=== PATIENT | male | born 1985 | race Caucasian/White ===

== ENCOUNTER 2020-04-23 14:27 | Emergency (ER) | payer MEDICAID ==
[~2020-04-23] VITALS: Ht 165.1 cm; Wt 81.6 kg
[~2020-04-23 14:27] MED LIST: ACETAMINOPHEN325 M1 ORAL; ADVIL200 M2 ORAL
--- NOTE | 2020-04-23 15:30 | Emergency Room Report ---
History of Present Illness General Chief Complaint: Abdominal Pain Source: Patient Present Illness HPI Disclaimer: Please note that this report is being documented using [employer] technology. This can lead to erroneous entry secondary to incorrect interpretation by the dictating instrument. HPI: 35-year-old male history of recent COVID-19 presents with epigastric pain. He states it is been present for the past 1 hour. Denies any nausea, vomiting, urinary complaints. Denies any fever. Pain has subsided at this time. Denies any worsening with eating. No urinary complaints. Patient recently had admitted to the hospital for COVID-19 but feels improved denies shortness of breath or coughing. 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 COVID-19 Screening: Positive COVID-19 COVID-19 Testing [place] [facility] [place] Reviewed Nursing Documentation: PMH: Agreed; PSxH: Agreed Nursing Documentation-PMH Past Medical History: No History, Except For Review of Systems All Other Systems: negative except mentioned in HPI Physical Exam Vital Signs Date Time Temp Pulse Resp B/P (MAP) Pulse Ox O2 Delivery O2 Flow Rate FiO2 04/23/20 14:39 98.2 80 20 109/75 (86) 95 Room Air Sp02 EP Interpretation: reviewed, normal General Appearance: well appearing, no apparent distress Head: normocephalic, atraumatic Eyes: bilateral eye PERRL, bilateral eye EOMI ENT: hearing grossly normal, moist mucus membranes Neck: full range of motion, supple Respiratory: lungs clear, normal breath sounds, no rhonchi, no respiratory distress, no retraction, no wheezing Cardiovascular #1: normal peripheral pulses, regular rate, rhythm, no murmur Gastrointestinal: non tender, soft, non-distended, no guarding Neurologic: alert, oriented x3, no focal defects Skin: normal color, warm/dry Medical Decision Making Diagnostic Impression: Primary Impression: UTI (urinary tract infection) Additional Impression: Abdominal pain ER Course MDM: Differential included but not limited to gastritis, pancreatitis, cholecystitis to name a few. Clinical course-patient placed on a gurney. Vital signs stable. Exam benign. Laboratory studies showed mild 1+ leukocyte Estrace in the urine. Due to his abdominal pain recent admission weight will place on p.o. Cipro. Labs - Laboratory Tests Test 04/23/20 15:30 White Blood Count 7.3 K/UL (4.8-10.8) Red Blood Count 5.71 M/UL (4.70-6.10) Hemoglobin 16.0 G/DL (14.2-18.0) Hematocrit 48.8 % (42.0-52.0) Mean Corpuscular Volume 86 FL (80-99) Mean Corpuscular Hemoglobin 28.0 PG (27.0-31.0) Mean Corpuscular Hemoglobin Concent 32.7 G/DL (32.0-36.0) Red Cell Distribution Width 11.5 % (11.6-14.8) L Platelet Count 276 K/UL (150-450) Mean Platelet Volume 8.7 FL (6.5-10.1) Neutrophils (%) (Auto) 50.8 % (45.0-75.0) Lymphocytes (%) (Auto) 33.0 % (20.0-45.0) Monocytes (%) (Auto) 10.5 % (1.0-10.0) H Eosinophils (%) (Auto) 3.7 % (0.0-3.0) H Basophils (%) (Auto) 2.0 % (0.0-2.0) Urine Color Pale yellow Urine Appearance Clear Urine pH 5 (4.5-8.0) Urine Specific [place] 1.020 (1.005-1.035) Urine Protein Negative (NEGATIVE) Urine Glucose (UA) Negative (NEGATIVE) Urine Ketones Negative (NEGATIVE) Urine Blood Negative (NEGATIVE) Urine Nitrite Negative (NEGATIVE) Urine Bilirubin Negative (NEGATIVE) Urine Urobilinogen Normal MG/DL (0.0-1.0) Urine Leukocyte Esterase 1+ (NEGATIVE) H Urine RBC 0 /HPF (0 - 0) Urine WBC 0-2 /HPF (0 - 0) Urine Squamous Epithelial Cells None /LPF (NONE/OCC) Urine Bacteria Few /HPF (NONE) Urine Sperm Occasional /LPF (NONE) Sodium Level 139 MMOL/L (136-145) Potassium Level 4.8 MMOL/L (3.5-5.1) Chloride Level 104 MMOL/L (98-107) Carbon Dioxide Level 27 MMOL/L (21-32) Anion Gap 8 mmol/L (5-15) Blood Urea Nitrogen 16 mg/dL (7-18) Creatinine 0.8 MG/DL (0.55-1.30) Estimated Glomerular Filtration Rate > 60 mL/min (>60) Glucose Level 103 MG/DL (74-106) Calcium Level 8.7 MG/DL (8.5-10.1) Total Bilirubin 0.2 MG/DL (0.2-1.0) Aspartate Amino Transferase (AST) 50 U/L (15-37) H Alanine Aminotransferase (ALT) 286 U/L (12-78) H Alkaline Phosphatase 107 U/L (46-116) Total Protein 7.3 G/DL (6.4-8.2) Albumin 3.4 G/DL (3.4-5.0) Globulin 3.9 g/dL Albumin/Globulin Ratio 0.9 (1.0-2.7) L Lipase 208 U/L (73-393) On reevaluation: Patient remained in no acute distress Plan-discharge home p.o. Cipro follow-up PMD return precautions given Last Vital Signs Date Time Temp Pulse Resp B/P (MAP) Pulse Ox O2 Delivery O2 Flow Rate FiO2 04/23/20 14:39 98.2 80 20 109/75 (86) 95 Room Air Disposition: HOME, SELF-CARE Condition: Stable Scripts Ciprofloxacin Hcl* (CIPROFLOXACIN HCL*) 500 Mg Tablet 500 MG ORAL Q12H, #14 TAB 0 Refills Prov: Ok Chinchilla M.D. 04/23/20 Referrals: NOT CHOSEN IPA/,REFERRING (PCP) Ok Chinchilla M.D. Apr 23, 2020 15:29
[2020-04-23 15:58] VITALS: BP 109/75
[2020-04-23 16:07] LABS: APPEARANCE,URINE CLEAR; BILIRUBIN, URINE NEGATIVE (NEGATIVE); COLOR,URINE PALE YELLOW; GLUCOSE, URINE (UA) NEGATIVE (NEGATIVE); KETONES,URINE NEGATIVE (NEGATIVE); LEUKOCYTE ESTERASE ,URINE 1+ (NEGATIVE); NITRITE,URINE NEGATIVE (NEGATIVE); PH,URINE 5 (4.5-8.0); PROTEIN,URINE NEGATIVE (NEGATIVE); UROBILINOGEN,URINE NORMAL MG/DL (0.0-1.0)
[2020-04-23 16:08] LABS: EOSINOPHILS % (AUTO) 3.7 % (0.0-3.0); HEMATOCRIT 48.8 % (42.0-52.0); MEAN CORPUSCULAR VOLUME 86 FL (80-99); MONOCYTES % (AUTO) 10.5 % (1.0-10.0); NEUTROPHILS % (AUTO) 50.8 % (45.0-75.0); PLATELET COUNT 276 K/UL (150-450); RED BLOOD COUNT 5.71 M/UL (4.70-6.10); RED CELL DISTRIBUTION WIDTH 11.5 % (11.6-14.8); WHITE BLOOD COUNT 7.3 K/UL (4.8-10.8)
[2020-04-23 16:23] LABS: ANION GAP 8 mmol/L (5-15); BLOOD UREA NITROGEN 16 mg/dL (7-18); CALCIUM 8.7 MG/DL (8.5-10.1); CARBON DIOXIDE 27 MMOL/L (21-32); CHLORIDE 104 MMOL/L (98-107); CREATININE 0.8 MG/DL (0.55-1.30); POTASSIUM 4.8 MMOL/L (3.5-5.1); SODIUM 139 MMOL/L (136-145)
[2020-04-23 16:27] LABS: ALANINE AMINOTRANSFERASE 286 U/L (12-78); ALBUMIN 3.4 G/DL (3.4-5.0); ALBUMIN/GLOBULIN RATIO 0.9 (1.0-2.7); ALKALINE PHOSPHATASE 107 U/L (46-116); ASPARTATE AMINO TRANSFERASE 50 U/L (15-37); BILIRUBIN,TOTAL 0.2 MG/DL (0.2-1.0)
[2020-04-23] MEDS ORDERED: CIPROFLOXACIN500 M2 ORAL (16:36)
[2020-04-23 16:45] VITALS: BP 110/75
[2020-04-23 16:50] VITALS: BP 109/75
--- NOTE | 2020-04-23 17:54 | Diagnostic Imaging Report ---
Indication: Abdominal pain Technique: Grayscale and duplex images of the right upper quadrant. Exam limited due to patient being Covid positive Comparison: none Findings: Pancreas is incompletely visualized, visualized portions unremarkable. Nonaneurysmal abdominal aorta. The liver demonstrates slightly increased echogenicity, consistent with hepatocellular disease, likely fatty change. There is some focal sparing in the usual location adjacent to the gallbladder fossa. The right kidney measures 11.7 cm in length. The gallbladder is unremarkable, without stones, wall thickening, nor pericholecystic fluid. Common bile duct measures 5 mm diameter. Scanning in the area of pain below the umbilicus does not demonstrate any sonographically discernible abnormality Impression: Limited exam, as described Negative for gallstones or dilated bile ducts Liver demonstrates diffusely increased echogenicity, consistent with diffuse hepatocellular disease, most likely fatty change. Note focal sparing in the usual location adjacent to the gallbladder fossa
== END 2020-04-23 16:58 | disposition home or self-care (01) ==
LOC: EMR 15:00
DX: N39.0 Urinary tract infection, site not specified (principal); R10.13 Epigastric pain
CPT/HCPCS: 36415; 76705; 80053; 81003; 83690; 85025; Z7502; 99284

== ENCOUNTER 2020-08-16 01:27 | Emergency (ER) | payer MEDICAID ==
[~2020-08-16] VITALS: Ht 175.3 cm; Wt 93.0 kg
[~2020-08-16 01:27] MED LIST changes: +CIPROFLOXACIN500 M2 ORAL
[2020-08-16] MEDS ORDERED: Aspirin Baby 81mg ORAL ONE (01:45)
--- NOTE | 2020-08-16 01:45 | NUR ---
ED Nurse Note: Recieved pt walk in from home with c/o headache with upper back of neck and shoulder pain at 8, pt describes as muscle tightness, pt states he has been very stressed lately, denies chest pain, sob, or any otehr complaints, states he really just wants to sleep, MD at bedside, will resume care as ordered and closely monitor.
[2020-08-16] MEDS ORDERED: Ketorolac 30mg Inj ONE (02:23)
[2020-08-16] MEDS ORDERED: NAPROXEN250 MG ORAL (02:28)
[2020-08-16] MEDS ORDERED: ACETAMINOPHEN325 M1 ORAL (02:28)
[2020-08-16] MEDS ORDERED: LIDODERM700 M1 TOPIC (02:28)
[2020-08-16] MEDS ORDERED: Ketorolac 60mg Inj IM ONE (02:30)
--- NOTE | 2020-08-16 02:37 | Emergency Room Report ---
History of Present Illness General Chief Complaint: Pain Present Illness HPI 35-year-old male here with right upper back pain and headache. Patient has been seen here several times for this in the past. Says that he has been under a lot of stress recently. Took an ibuprofen with some relief. Says this been ongoing for 5 days. Has been gradual in nature. No sudden onset. No vision changes, focal numbness or weakness, neck stiffness, chest pain, palpitation, shortness of breath, abdominal pain, nausea, vomiting, diarrhea, dysuria. Allergies: Coded Allergies: No Known Allergies (Unverified , 04/15/20) COVID-19 Screening Contact w/high risk pt: No Experienced COVID-19 symptoms?: No COVID-19 Testing performed [employer]MENT: No Review of Systems All Other Systems: negative except mentioned in HPI Physical Exam Vital Signs Date Time Temp Pulse Resp B/P (MAP) Pulse Ox O2 Delivery O2 Flow Rate FiO2 08/16/20 01:34 98.8 68 16 124/82 (96) 97 Room Air Sp02 EP Interpretation: reviewed, normal General Appearance: no apparent distress, alert, non-toxic Head: normocephalic, atraumatic Eyes: bilateral eye normal inspection, bilateral eye PERRL ENT: hearing grossly normal, normal pharynx, no angioedema, normal voice Neck: full range of motion, supple/symm/no masses Respiratory: chest non-tender, lungs clear, normal breath sounds, speaking full sentences Cardiovascular #1: regular rate, rhythm, no edema Cardiovascular #2: 2+ carotid (R), 2+ carotid (L), 2+ radial (R), 2+ radial (L), 2+ dorsalis pedis (R), 2+ dorsalis pedis (L) Gastrointestinal: normal bowel sounds, non tender, soft, non-distended, no guarding, no rebound Rectal: deferred Genitourinary: normal inspection, no CVA tenderness Musculoskeletal: back normal, normal range of motion, gait/station normal, other - Right upper back and shoulder tenderness on palpation overlying the region of the trapezius muscle Neurologic: alert, motor strength/tone normal, oriented x3, sensory intact, responsive, speech normal Psychiatric: judgement/insight normal, memory normal, mood/affect normal, no suicidal/homicidal ideation Lymphatic: no adenopathy Medical Decision Making Diagnostic Impression: Primary Impression: Tension headache ER Course ddx: Tension headache, migraine, cluster, mass-tumor, meningitis, sah, temporal arteritis, glaucoma EKG: NSR, no ischemia, intervals WNL. No ectopy. Rate 56 bpm. T wave inversion in lead III Rhythm strip: patient monitored for arrhythmias - no malignant dysrhythmias, runs of PVCs, nor pauses noted CXR: No infiltrate/effusion. Mediastinum within normal limits. No consolidations. No free air under the diaphragm. No bony abnormalities 35-year-old male here with right upper back pain and headache for several days. Patient had mild tenderness on palpation overlying the trapezius muscle. Likely tension headache. No red flag warning signs such as sudden onset, fevers, neurologic findings, neck stiffness, meningismus. He had normal vital signs including a normal oxygen saturation on room air. Given Lidoderm patch, aspirin, Toradol in the emergency department with good resolution of his pain. Chest x-ray normal. EKG showed T wave inversions in lead III, which is an old finding. EKG unchanged. He denied any chest pain or palpitations or shortness of breath. Given prescription for Lidoderm patch, ibuprofen, Tylenol. Told to follow-up with primary care. Discharged in good condition. Last Vital Signs Date Time Temp Pulse Resp B/P (MAP) Pulse Ox O2 Delivery O2 Flow Rate FiO2 08/16/20 01:34 98.8 68 16 124/82 (96) 97 Room Air Disposition: HOME, SELF-CARE Condition: Stable Scripts Naproxen* (NAPROSYN*) 250 Mg Tablet 250 MG ORAL TID PRN for For Pain, #20 TAB 0 Refills Prov: Josh Blancas M.D. 08/16/20 Acetaminophen* (ACETAMINOPHEN 325MG TABLET*) 325 Mg Tablet 325 MG ORAL Q4H PRN for For Pain, #20 TAB Prov: Josh Blancas M.D. 08/16/20 Lidocaine Patch* (Lidoderm Patch*) 1 Each Adh..patch 1 PATCH TOPIC DAILY, #7 PATCH 0 Refills Patch(es) may remain in place for up to 12 hours in any 24-hour period. Prov: Josh Blancas M.D. 08/16/20 Referrals: [facility] Patient Instructions: Tension Headache Josh Blancas M.D. Aug 16, 2020 02:37
--- NOTE | 2020-08-16 02:40 | NUR ---
ER DISCHARGE NOTE: Patient is cleared to be discharged per ERMD, pt is aox4, on room air, with stable vital signs. pt was given dc and prescription instructions, pt was able to verbalize understanding, pt id band removed without complications. pt is able to ambulate with steady gait. pt took all belongings.
[2020-08-16 02:45] VITALS: BP 124/82
--- NOTE | 2020-08-16 03:57 | Diagnostic Imaging Report ---
EXAM: XR Chest, 1 View CLINICAL HISTORY: Chest pain TECHNIQUE: Frontal view of the chest. COMPARISON: 04/15/20 FINDINGS: Lungs: Normal lung volumes. No airspace consolidation or pulmonary edema. Previously seen peripheral air space opacities have completely resolved. Pleural space: No evidence of pneumothorax. Heart: Cardiac silhouette is within normal limits. Mediastinum: No mediastinal widening or shift. Bones/joints: No acute osseous abnormality. IMPRESSION: No evidence of acute cardiopulmonary abnormality. Complete interval resolution of previously described peripheral airspace opacities.
== END 2020-08-16 02:56 | disposition home or self-care (01) ==
LOC: EMR 01:51
DX: G44.209 Tension-type headache, unspecified, not intractable (principal); M54.6 Pain in thoracic spine
CPT/HCPCS: 71045; 93005; 96372; J1885; Z7502; 99284

== ENCOUNTER 2020-09-20 01:27 | Emergency (ER) | payer MEDICAID ==
[~2020-09-20] VITALS: Ht 172.7 cm; Wt 77.1 kg
[~2020-09-20 01:27] MED LIST changes: +LIDODERM700 M1 TOPIC; +NAPROXEN250 MG ORAL
--- NOTE | 2020-09-20 01:44 | Emergency Room Report ---
History of Present Illness General Chief Complaint: Chest Pain Source: Patient Present Illness HPI Is a 35-year-old male with no significant past medical history. He was admitted here for Covid pneumonia in March. He did well. He had his Covid vaccine at 10 AM yesterday. He woke up tonight with chest pain and fever and chills. Also along with arm pain from where the injection site was. Denies any nausea or vomiting. No exertional component. Is generalized body pain. Denies any cough or congestion. Pain is 8 out of 10. Nothing made it better. Nothing made it worse. 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 COVID-19 Screening: Positive COVID-19 COVID-19 Testing Source: [facility] [place] Patient History Past Medical History: see triage record, old chart reviewed Past Surgical History: none Pertinent Family History: none Social History: Denies: smoking Immunizations: other Reviewed Nursing Documentation: PMH: Agreed; PSxH: Agreed Nursing Documentation-PMH Past Medical History: No History, Except For Review of Systems Constitutional: Reports: chills, fever Eye: Denies: eye pain, blurred vision ENT: Denies: ear pain, nose congestion, throat swelling Respiratory: Denies: cough, shortness of breath Cardiovascular: Reports: chest pain; Denies: palpitations Gastrointestinal: Denies: abdominal pain, diarrhea, nausea, vomiting Musculoskeletal: Denies: back pain, joint pain Skin: Denies: rash Neurological: Denies: headache, numbness Endocrine: Denies: increased thirst, increased urine Hematologic/Lymphatic: Denies: easy bruising All Other Systems: negative except mentioned in HPI Physical Exam Vital Signs Date Time Temp Pulse Resp B/P (MAP) Pulse Ox O2 Delivery O2 Flow Rate FiO2 09/20/20 01:33 100.9 117 18 141/90 (107) 94 Room Air Vitals with fever Sp02 EP Interpretation: reviewed, normal General Appearance: well appearing, no apparent distress, alert Head: normocephalic, atraumatic Eyes: bilateral eye PERRL, bilateral eye EOMI ENT: hearing grossly normal, normal pharynx Neck: full range of motion, supple, no meningismus Respiratory: chest non-tender, lungs clear, normal breath sounds Cardiovascular #1: regular rate, rhythm, no murmur Gastrointestinal: normal bowel sounds, non tender, no mass, no organomegaly, no bruit, non-distended Musculoskeletal: back normal, normal range of motion, gait/station normal Psychiatric: mood/affect normal Medical Decision Making Diagnostic Impression: Primary Impression: Vaccine reaction Qualified Codes: [id number].[id number] - Adverse effect of other vaccines and biological substances, initial encounter ER Course This patient presents with chest pain and low-grade fever and myalgia after vaccine. No evidence of pneumonia, or other infection. No evidence of ACS, PE, dissection to name a few. He felt better now. Will discharge home. EKG Diagnostic Results Troponin ordered: Yes Rate: tachycardiac Rhythm: NSR ST Segments: no acute changes Rhythm Strip Diag. Results EP Interpretation: yes Rate: 100 Rhythm: NSR, no PVC's, no ectopy Chest X-Ray Diagnostic Results Chest X-Ray Diagnostic Results : Chest X-Ray Ordered: Yes # of Views/Limited/Complete: 1 View Indication: Chest Pain EP Interpretation: Yes Interpretation: no consolidation, no effusion, no pneumothorax, no acute cardiopulmonary disease Impression: No acute disease Electronically Signed by: Diogo Mcbride MD Last Vital Signs Date Time Temp Pulse Resp B/P (MAP) Pulse Ox O2 Delivery O2 Flow Rate FiO2 09/20/20 01:33 100.9 117 18 141/90 (107) 94 Room Air Status: improved Disposition: HOME, SELF-CARE Condition: Stable Scripts Ibuprofen* (MOTRIN*) 600 Mg Tablet 600 MG ORAL Q6H PRN for For Pain, #30 TAB 0 Refills Prov: Diogo Mcbride MD 09/20/20 Additional Instructions: Follow-up with your doctor in 7 days. Return if symptoms worsen. Diogo Mcbride MD Sep 20, 2020 01:44
[2020-09-20] MEDS ORDERED: Acetaminophen 500mg (ES) tab ORAL ONE (01:45)
[2020-09-20 01:53] LABS: BASOPHILS % (AUTO) 1.1 % (0.0-2.0); EOSINOPHILS % (AUTO) 2.1 % (0.0-3.0); HEMATOCRIT 44.8 % (42.0-52.0); HEMOGLOBIN 15.1 G/DL (14.2-18.0); LYMPHOCYTES % (AUTO) 22.2 % (20.0-45.0); MEAN CORPUSCULAR VOLUME 83 FL (80-99); MONOCYTES % (AUTO) 8.7 % (1.0-10.0); NEUTROPHILS % (AUTO) 65.9 % (45.0-75.0); PLATELET COUNT 172 K/UL (150-450); RED BLOOD COUNT 5.39 M/UL (4.70-6.10); RED CELL DISTRIBUTION WIDTH 11.7 % (11.6-14.8); WHITE BLOOD COUNT 8.2 K/UL (4.8-10.8)
[2020-09-20 02:03] LABS: ANION GAP 9 mmol/L (5-15); BLOOD UREA NITROGEN 21 mg/dL (7-18); CALCIUM 9.5 MG/DL (8.5-10.1); CARBON DIOXIDE 28 MMOL/L (21-32); CHLORIDE 102 MMOL/L (98-107); SODIUM 139 MMOL/L (136-145)
[2020-09-20 02:20] VITALS: BP 137/88
[2020-09-20] MEDS ORDERED: IBUPROFEN600 M1 ORAL (02:40)
[2020-09-20] MEDS ORDERED: Ketorolac 30mg Inj ONE (02:44)
[2020-09-20] MEDS ORDERED: Ketorolac 30mg Inj IV ONE (02:45)
--- NOTE | 2020-09-20 02:50 | NUR ---
ER DISCHARGE NOTE: Patient is cleared to be discharged per ERMD, pt is aox4, on room air, with stable vital signs. pt was given dc and prescription instructions, pt was able to verbalize understanding, pt id band and iv site removed without complications. pt is able to ambulate with steady gait. pt took all belongings.
--- NOTE | 2020-09-20 03:05 | Diagnostic Imaging Report ---
EXAM: XR Chest, 1 View CLINICAL HISTORY: CP TECHNIQUE: Frontal view of the chest. COMPARISON: 08/16/2020 FINDINGS: Lungs: Unremarkable. No consolidation. Pleural space: Unremarkable. No pneumothorax. Heart: Unremarkable. No cardiomegaly. Mediastinum: Unremarkable. Bones/joints: No acute abnormality IMPRESSION: 1. No acute cardiopulmonary disease. 2. If there is continued concern consider frontal and lateral chest radiographs or CT.
== END 2020-09-20 02:50 | disposition home or self-care (01) ==
LOC: EMR 01:47
DX: R50.83 Postvaccination fever (principal); T50.Z95A Adverse effect of other vaccines and biological substances, initial encounter; Y92.9 Unspecified place or not applicable; R07.9 Chest pain, unspecified; Z86.16 Personal history of COVID-19
CPT/HCPCS: 36415; 71045; 80048; 84484; 85025; 93005; 96374; J1885; Z7502; 99284